=== PATIENT | female | born 1995 | race African-American/Black ===

== ENCOUNTER 2017-07-26 18:28 | Emergency (ER) | payer OTHER ==
[~2017-07-26] VITALS: Ht 175.3 cm; Wt 80.0 kg
[2017-07-26 18:32] VITALS: BP 113/64
== END 2017-07-26 19:12 | disposition left against medical advice (07) ==
LOC: ER 18:32
DX: F41.9 Anxiety disorder, unspecified (principal); Z53.21 Procedure and treatment not carried out due to patient leaving prior to being seen by health care provider